=== PATIENT | male | born 1990 | race African-American/Black ===

== ENCOUNTER 2017-08-27 17:35 | Emergency (ER) | payer BC, OTHER ==
[~2017-08-27] VITALS: Ht 190.5 cm; Wt 113.5 kg
[~2017-08-27 17:35] MED LIST: ALBU.5I NEB; VENTAER INH
[2017-08-27 18:06] VITALS: BP 156/69; PULSE 72; RESP 17; TEMP 98.5; O2SAT 99
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
[2017-08-27 19:49] LABS: AUTOMATED NEUTROPHIL # 4.5 TH/MM3 (1.8-7.7); BASOPHIL % 0.3 % (0.0-2.0); EOSINOPHIL # 0.1 TH/MM3 (0-0.4); EOSINOPHIL % 1.2 % (0.0-4.0); HEMATOCRIT 40.4 % (39.0-51.0); HEMOGLOBIN 13.4 GM/DL (13.0-17.0); LYMPH % 17.1 % (9.0-44.0); LYMPHOCYTE # 1.1 TH/MM3 (1.0-4.8); MEAN CELL VOLUME 79.1 FL (80.0-100.0); MEAN CORPUSCULAR HEMOGLOBIN 26.3 PG (27.0-34.0); MEAN CORPUSCULAR HGB CONC 33.2 % (32.0-36.0); MEAN PLATELET VOLUME 9.2 FL (7.0-11.0); MONO % 9.2 % (0.0-8.0); MONOCYTE # 0.6 TH/MM3 (0-0.9); NEUT % 72.2 % (16.0-70.0); PLATELET COUNT 215 TH/MM3 (150-450); RED BLOOD COUNT 5.11 MIL/MM3 (4.50-5.90); RED CELL DISTRIBUTION WIDTH 14.7 % (11.6-17.2); WHITE BLOOD COUNT 6.2 TH/MM3 (4.0-11.0)
[2017-08-27 20:09] LABS: ALBUMIN 3.8 GM/DL (3.4-5.0); BICARBONATE 28.6 MEQ/L (21.0-32.0); BLOOD UREA NITROGEN 8 MG/DL (7-18); CALCIUM 9.1 MG/DL (8.5-10.1); CHLORIDE 105 MEQ/L (98-107); CREATININE 1.02 MG/DL (0.60-1.30); GLOMERULAR FILTRATION RATE 109 ML/MIN (>89); GLUCOSE,RANDOM 75 MG/DL (74-106); SODIUM (NA) 141 MEQ/L (136-145)
[2017-08-27 20:10] LABS: AST (GOT) 18 U/L (15-37)
[2017-08-27 20:13] LABS: ACETAMINOPHEN LESS THAN 2.0 MCG/ML (10.0-30.0); ALKALINE PHOSPHATASE 65 U/L (45-117); ALT (GPT) 30 U/L (12-78); TOTAL BILIRUBIN ADULT 0.5 MG/DL (0.2-1.0)
[2017-08-27 22:11] VITALS: BP 120/52; PULSE 63; RESP 18; TEMP 98.1; O2SAT 97
[2017-08-28 02:01] VITALS: BP 124/54; PULSE 59; RESP 16; O2SAT 98
== END 2017-08-28 03:52 ==
LOC: NEDAMB 17:35 → NEPJ 08-28 03:52
DX: F43.20 Adjustment disorder, unspecified (principal); J45.909 Unspecified asthma, uncomplicated; Z88.8 Allergy status to other drugs, medicaments and biological substances; Z79.51 Long term (current) use of inhaled steroids
CPT/HCPCS: 80053; 80307; 85025; 99285

== ENCOUNTER 2017-11-16 04:51 | Emergency (ER) | payer SELFPAY ==
[~2017-11-16] VITALS: Ht 193 cm; Wt 113.0 kg
[2017-11-16 05:02] VITALS: BP 159/73; PULSE 103; RESP 20; TEMP 98.3; O2SAT 95
[2017-11-16 05:07] VITALS: RESP 22; O2SAT 93
[2017-11-16 05:09] VITALS: RESP 22; O2SAT 97
[2017-11-16] MEDS ORDERED: ALBU6.7H INH (05:38)
[2017-11-16] MEDS ORDERED: PRED-503 PO (05:38)
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
[2017-11-16 05:44] VITALS: O2SAT 99
[2017-11-16] MEDS ORDERED: RESP: ALBUTEROL 2.5 MG/IPRATROPIUM 0.5 MG NEB (SCH) INH ONE (05:45)
[2017-11-16] MEDS ORDERED: predniSONE 20 MG TAB PO ONE (05:45)
== END 2017-11-16 06:01 | disposition home or self-care (01) ==
LOC: NEPD 04:51
DX: J45.901 Unspecified asthma with (acute) exacerbation (principal)
CPT/HCPCS: 94664; 99283; J7512